=== PATIENT | male | born 1950 | race Caucasian/White ===

== ENCOUNTER 2024-11-26 16:12 | Emergency (ER) | payer BC ==
[~2024-11-26] VITALS: Ht 172.7 cm; Wt 100.0 kg
--- NOTE | 2024-11-26 16:58 | Physician Documentation ---
History of Present Illness General Chief Complaint: Urinary Symptoms Stated Complaint: ABD PAIN Time Seen by MD: 16:52 OK to notify your PCP?: No Source: patient, RN notes reviewed Mode of Arrival: POV Exam Limitations: no limitations History of Present Illness Initial Comments 74-year-old male, with no reported past medical history, presents complaining of pain with urination that began three days ago. He also has had suprapubic pain for the last two days, worsening today. Additionally he reports some subjective fevers/sweats. He denies any urinary retention, blood in his urine, or difficulty voiding completely. He has been drinking cranberry juice and taking cranberry pills without improvement. He denies history of urinary tract infections. Medication Reconciliation Allergies: Coded Allergies: No Known Allergies (Unverified , 11/26/24) Scheduled Sulfamethoxazole/Trimethoprim (Septra Ds Tab), 1 TAB PO BID Sulfamethoxazole/Trimethoprim (Septra Ds Tab), 1 TAB PO BID Scheduled PRN Phenazopyridine Hcl (Pyridium tablet), 2 TAB PO Q8H PRN for pain Past Medical History Past Medical History: No Pertinent History Past Surgical History: no surgical history Drug Use: none Lives In: Home Review of Systems All Other Systems at this time: Reviewed and Negative ROS suprapubic pain as well as other positive symptoms as stated above in the HPI, otherwise all systems are reviewed and negative. Physical Exam Physical Exam Vital Signs: RN Vital Signs have been reviewed: Yes, Temperature: 98.7, Source: Temporal, Heart Rate: 62, Respiratory Rate: 17, BP: 138/84, Pulse Oximetry: 99, Weight: 100.000 Pulse Oximetry Reflects: adequate oxygenation Physical Exam VITALS: Reviewed and as above. GENERAL: Alert, mild distress. HEENT: Normocephalic, atraumatic, PERRL, EOMI, dry mucosa. RESPIRATORY: Lungs clear, normal breath sounds, no respiratory distress. CHEST: No accessory muscle use, no retractions CV: Regular rate, rhythm, no edema, no murmur, No: JVD GI: Slight suprapubic tenderness. Soft, bowels sounds present, no rebound, guarding, or rigidity BACK: No CVA tenderness, or swelling MUSCULOSKELETAL No deformities, no edema SKIN: Warm and dry, no rash NEURO: Oriented x4, No motor or sensory deficit PSYCH: Normal mood and affect, no agitation Progress Results/Orders Reviewed/noted all lab results: Yes Results/Orders Orders - GERARDO HERRING MD Bladder Scan (11/26/24 ) Cult Urine + Fate Ct (11/26/24 17:23) Completed Orders - GERARDO HERRING MD Ua W/Microscopic, Cult If Ind (11/26/24 16:22) Sulfamethox/Trimetho. Ds Tab (Septra Ds (11/26/24 17:10) Phenazopyridine Tablet (Pyridium Tablet) (11/26/24 17:25) Vital Signs 11/26/24 11/26/24 16:18 17:42 Temp 98.7 98.6 Pulse 62 64 Resp 17 16 B/P (MAP) 138/84 132/78 Pulse Ox 99 99 Laboratory Tests Test 11/26/24 16:22 Urine Specimen Description Cln catch midstream Urine Color Yellow Urine Clarity Slightly cloudy Urine pH 5.5 Urine Specific Lyles 1.025 Urine Protein Trace Urine Glucose (UA) Negative Urine Ketones Negative Urine Occult Blood Small Urine Nitrite Positive H Urine Bilirubin Negative Urine Urobilinogen 0.2 Urine Leukocyte Esterase Small H Urine RBC 0-2 Urine WBC Tntc H Urine Squamous Epithelial Cells Few Urine Bacteria 4+ Urine Culture Indicated Indicated Volume Urine Centrifuged 10 ml Urine Comment Microbiology Date/Time Source Procedure Growth Status 11/26/24 17:23 Urine Clean Catch Midstream Urine Culture - Preliminary Gram Negative Dawson Resulted Medical Decision Making Additional info obtained from: old records (No prior visits) Findings The patient is a 74-year-old male with urinary symptoms, the patient is nontoxic hemodynamically stable with a benign exam his urine does demonstrate a urinary tract infection. The patient will be placed on Septra he had a low amount of urine in his bladder on bladder scan. The patient will be discharged with instructions to follow up as an outpatient. Prior hospitalizations have been reviewed the patient's pulse oximetry was interpreted as adequate and normal Departure Time of Disposition: 17:25 Disposition: 01 HOME / SELF CARE / HOMELESS Impression: Primary Impression: Acute urinary tract infection Condition: Stable Discharge Instructions: Urinary Tract Infection, Adult Additional Instructions: Full course of antibiotics as prescribed. Follow up with the regular doctor for retested to ensure urinary tract infection has resolved. Return to the ER for worsening pain, back pain, or any other concerns Prescriptions Phenazopyridine Hcl (Pyridium tablet) 100 Mg Tablet 2 TAB PO Q8H PRN for pain, #12 TAB Prov: GERARDO HERRING MD 11/26/24 Sulfamethoxazole/Trimethoprim (Septra Ds Tab) 800 Mg/160 Mg Tablet 1 TAB PO BID, #14 TAB Prov: GERARDO HERRING MD 11/26/24 Sulfamethoxazole/Trimethoprim (Septra Ds Tab) 800 Mg/160 Mg Tablet 1 TAB PO BID, #14 TAB Prov: GERARDO HERRING MD 11/26/24 Education Educated: Patient Educated regarding: diagnosis, treatment, need for follow up Signature Scribe Signature: Scribed for Gerardo Herring MD by Kris Gill . 11/26/24 17:03 Attestation: The note accurately reflects work and decisions made by me.Gerardo Herring MD 11/27/24 18:27 GERARDO HERRING MD Nov 26, 2024 16:58 KRIS DOYLE Nov 26, 2024 17:06
[2024-11-26 16:59] LABS: LEUKOCYTE ESTERASE ,URINE SMALL (Neg); NITRITES, URINE POSITIVE (Neg); OCCULT BLOOD,URINE SMALL (Neg)
[2024-11-26 17:01] LABS: UA COLLECTION TYPE CLN CATCH MIDSTREAM
[2024-11-26 17:22] LABS: SQUAMOUS EPITHELIAL CELL,UR FEW /LPF (FEW)
[2024-11-26] MEDS ORDERED: SULF1TAB45 PO (17:23)
[2024-11-26] MEDS ORDERED: PHEN-786 PO (17:26)
[2024-11-26] MEDS: phenazopyridine 100mg tablet PO ONE (17:39)
[2024-11-26] MEDS: sulfamethoxazole/trimethoprim DS (800/160mg) tablet PO ONE (17:39)
[2024-11-26 17:42] VITALS: BP 132/78; PULSE 64; RESP 16; TEMP 98.6; O2SAT 99
== END 2024-11-26 17:48 | disposition home or self-care (01) ==
LOC: ER 16:13
DX: N39.0 Urinary tract infection, site not specified (principal)
CPT/HCPCS: 81001; 87077; 87088; 87186; 99283